=== PATIENT | male | born 1955 | race Caucasian/White ===

== ENCOUNTER 2017-06-20 11:46 | Emergency (ER) | payer MEDICAID, MEDICARE ==
[2017-06-20 12:15] VITALS: BP 132/73
[2017-06-20] MEDS ORDERED: Diphtheria,Pertussis(Acell),Tetanus Vaccine 0.5 ML SDV IM ONE (12:31)
[2017-06-20] MEDS ORDERED: Amoxicillin/Clavulanate K 875-125 MG Tab PO ONE (12:31)
[2017-06-20] MEDS ORDERED: Bacitracin Oint 1 GM U/D Packet TOP ONE (12:31)
--- NOTE | 2017-06-20 13:56 | EDM.PDOC ---
ED HPI GENERAL MEDICAL PROBLEM - General Chief Complaint: Bite:Animal, Insect Stated Complaint: LEFT PALM DOG BITE Time Seen by Provider: 06/20/17 12:31 Source of Information: Reports: Patient History Limitations: Reports: No Limitations - History of Present Illness INITIAL COMMENTS - FREE TEXT/NARRATIVE: Patient suffered a dog bite to his left palm [facility]. He presents here with very jagged open wound. He'll receive a tetanus update antibiotics and a loosely approximate the edges of the wound. The animal has been cleared of rabies Onset: Today Onset Date: 06/20/17 Duration: Minutes: Location: Reports: Upper Extremity, Left Quality: Reports: Ache Severity: Moderate Improves with: Reports: None Worsens with: Reports: Movement Context: Reports: Trauma Associated Symptoms: Reports: No Other Symptoms Left Hand Pain Score (Numeric/FACES): 6 - Related Data Allergies Allergy/AdvReac Type Severity Reaction Status Date / Time No Known Allergies Allergy Verified 06/20/17 12:15 Home Meds: Home Meds NK [No Known Home Meds] 12/07/13 [History] Past Medical History Musculoskeletal History: Reports: Fracture Neurological History: Reports: Other (See Below) Other Neuro History: scoliosis Psychiatric History: Reports: Depression Social & Family History - Tobacco Use Smoking Status *Q: Light Tobacco Smoker Years of Tobacco use: 20 Packs/Tins Daily: 0.5 - Alcohol Use Days Per Week of Alcohol Use: 7 Number of Drinks Per Day: 5 Total Drinks Per Week: 35 - Recreational Drug Use Recreational Drug Use: No ED ROS GENERAL - Review of Systems Review Of Systems: See Below Constitutional: Reports: No Symptoms HEENT: Reports: No Symptoms Respiratory: Reports: No Symptoms Cardiovascular: Reports: No Symptoms Endocrine: Reports: No Symptoms GI/Abdominal: Reports: No Symptoms : Reports: No Symptoms Musculoskeletal: Reports: No Symptoms Skin: Reports: No Symptoms Neurological: Reports: No Symptoms Psychiatric: Reports: No Symptoms Hematologic/Lymphatic: Reports: No Symptoms ED EXAM, ANIMAL BITE - Physical Exam Exam: See Below Exam Limited By: No Limitations General Appearance: Alert, WD/WN, Mild Distress Eye Exam: Bilateral Eye: Normal Inspection Ears: Normal External Exam Nose: Normal Inspection Throat/Mouth: Normal Inspection, Normal Voice Head: Atraumatic, Normocephalic Neck: Normal Inspection Respiratory/Chest: No Respiratory Distress Cardiovascular: Normal Peripheral Pulses Extremities: No: Normal Inspection (Laceration of left palm) Neurological: Alert, Oriented Psychiatric: Normal Affect, Normal Mood Skin Exam: Normal Color ED ANIMAL BITE PROCEDURES - Laceration/Wound Repair Left Hand Appearance: Irregular, Clean Distal NVT: Neuro & Vascular Intact, No Tendon Injury Anesthetic Type: Local Local Anesthesia - Lidocaine (Xylocaine): 1% Plain Local Anesthetic Volume: 4cc Skin Prep: Chlorhexidine (Hibiciens), Saline Exploration/Debridement/Repair: Wound Explored Closed With: Sutures Suture Size: 4-0 Suture Type: Nylon, Interrupted Sterile Dressing Applied: Nurse Tetanus Status Addressed: Yes Complications: No Course - Vital Signs Last Recorded V/S: Last Vital Signs Temp 96.8 F 06/20/17 12:13 Pulse 83 06/20/17 12:13 Resp 14 06/20/17 12:13 BP 132/73 06/20/17 12:13 Pulse Ox 99 06/20/17 12:13 - Orders/Labs/Meds Orders: Active Orders 24 hr Category Date Time Status Procedure Tray at Bedside [RC] ASDIRECTED Care 06/20/17 12:31 Active Vaccines to be Administered [RC] PER UNIT ROUTINE Care 06/20/17 12:31 Active Meds: Medications Discontinued Medications Generic Name Dose Route Start Last Admin Trade Name Freq PRN Reason Stop Dose Admin Amoxicillin/Clavulanate Potassium 1 tab 06/20/17 12:31 06/20/17 12:49 Augmentin 875 Mg/125 Mg PO 06/20/17 12:32 1 tab ONETIME ONE Administration Bacitracin 1 dose 06/20/17 12:31 06/20/17 12:50 Bacitracin Oint 1 Gm TOP 06/20/17 12:32 1 dose ONETIME ONE Administration Diphtheria/Tetanus/Acell Pertussis 0.5 ml 06/20/17 12:31 06/20/17 12:58 Adacel IM 06/20/17 12:32 0.5 ml .ONCE ONE Administration Lidocaine HCl 5 ml 06/20/17 12:31 06/20/17 12:50 Xylocaine-Mpf 1% INJECT 06/20/17 12:32 5 ml ONETIME ONE Administration Departure - Departure Time of Disposition: 13:53 Disposition: Home, Self-Care 01 Clinical Impression: Dog bite of left hand Qualifiers: Encounter type: initial encounter Qualified Code(s): S61.452A - Open bite of left hand, initial encounter - Discharge Information Instructions: Animal Bite, [id number] Referrals: PCP,None [Primary Care Provider] - Forms: ED Department Discharge Additional Instructions: Patient seen in the emergency room with injury to his left hand. He was bitten by a dog [facility]. The dog does have current rabies vaccination. The laceration is very jagged and will be loosely approximated. The patient received Augmentin 875 mg prior to the repair. He also received tetanus update. The laceration was loosely approximated using multiple interrupted sutures of 4- 0 Ethilon.. Prior to the closure the wound was scrubbed with Hibiclens and irrigated with syringe force saline. No complications were encountered in the closure. 1% lidocaine was anesthesia locally infiltrated. The patient is placed on Augmentin 870 mg twice a day for 7 days. Sutures to be removed in 7-10 days. Patient needs to be reevaluated if signs of infection develop. With a dog bite infection is possible. - Problem List & Annotations (1) Dog bite of left hand SNOMED Code(s): 150754964 Code(s): S61.452A - OPEN BITE OF LEFT HAND, INITIAL ENCOUNTER; W54.0XXA - BITTEN BY DOG, INITIAL ENCOUNTER Status: Acute Priority: Medium Current Visit: Yes Qualifiers: Encounter type: initial encounter Qualified Code(s): S61.452A - Open bite of left hand, initial encounter; W54.0XXA - Bitten by dog, initial encounter - Problem List Review Problem List Initiated/Reviewed/Updated: Yes - My Orders Last 24 Hours: My Active Orders 06/20/17 12:31 Procedure Tray at Bedside [RC] ASDIRECTED Vaccines to be Administered [RC] PER UNIT ROUTINE - Assessment/Plan Last 24 Hours: My Active Orders 06/20/17 12:31 Procedure Tray at Bedside [RC] ASDIRECTED Vaccines to be Administered [RC] PER UNIT ROUTINE
== END 2017-06-20 14:27 | disposition home or self-care (01) ==
LOC: JP.ED 11:46
DX: S61.452A Open bite of left hand, initial encounter (principal); F17.210 Nicotine dependence, cigarettes, uncomplicated; Z23 Encounter for immunization; W54.0XXA Bitten by dog, initial encounter
CPT/HCPCS: 12001; 90715; 99282; A9270; 90471; 99283-25

== ENCOUNTER 2017-07-04 14:12 | Emergency (ER) | payer SELFPAY ==
[2017-07-04 15:08] VITALS: BP 126/85
--- NOTE | 2017-07-04 15:29 | EDM.PDOC ---
[id number] Seen by Provider: 07/04/17 15:05 Source of Information: Reports: Patient History Limitations: Reports: No Limitations - History of Present Illness INITIAL COMMENTS - FREE TEXT/NARRATIVE: 61-year-old male in for suture removal of his left hand. He has 5 Ethilon sutures to the left palm after a dog bite almost 2 weeks ago. The wound is dry, appears to have healed nicely without any evidence of infection. - Related Data Allergies Allergy/AdvReac Type Severity Reaction Status Date / Time No Known Allergies Allergy Verified 06/20/17 12:15 Home Meds: Home Meds NK [No Known Home Meds] 12/07/13 [History] Past Medical History Musculoskeletal History: Reports: Fracture Neurological History: Reports: Other (See Below) Other Neuro History: scoliosis Psychiatric History: Reports: Depression Social & Family History - Tobacco Use Smoking Status *Q: Light Tobacco Smoker Years of Tobacco use: 20 Packs/Tins Daily: 0.5 - Alcohol Use Days Per Week of Alcohol Use: 7 Number of Drinks Per Day: 5 Total Drinks Per Week: 35 - Recreational Drug Use Recreational Drug Use: No ED ROS GENERAL - Review of Systems Review Of Systems: ROS reveals no pertinent complaints other than HPI. ED EXAM, SKIN/RASH Exam: See Below Exam Limited By: No Limitations General Appearance: Alert, No Apparent Distress Respiratory/Chest: No Respiratory Distress Extremities: Other (Exam is otherwise limited to the left hand. The patient has a repaired irregular laceration with 5 likely 4-[address].) Course - Vital Signs Last Recorded V/S: Last Vital Signs Temp 96.3 F 07/04/17 15:07 Pulse 87 07/04/17 15:07 Resp 16 07/04/17 15:07 BP 126/85 07/04/17 15:07 Pulse Ox 98 07/04/17 15:07 - Re-Assessments/Exams Free Text/Narrative Re-Assessment/Exam: 07/04/17 15:28 Sutures were removed without difficulty. He'll keep the wound clean and dry while healing. Departure - Departure Time of Disposition: 15:40 Disposition: Home, Self-Care 01 Condition: Good Clinical Impression: Visit for suture removal - Discharge Information Instructions: Suture Removal, Care After Referrals: PCP,None [Primary Care Provider] - Forms: ED Department Discharge Care Plan Goals: Keep the wound clean while healing. Return if concerns of infection or not healing satisfactorily.
== END 2017-07-04 15:38 | disposition home or self-care (01) ==
LOC: JP.ED 14:12
DX: S61.452D Open bite of left hand, subsequent encounter (principal); W54.0XXD Bitten by dog, subsequent encounter
CPT/HCPCS: 99282